=== PATIENT | female | born 1995 | race Caucasian/White ===

== ENCOUNTER → 2019-09-20 | Outpatient (REF) | payer OTHER | LOC: M SFHCCLAY 09:10 | PROVIDERS: ATTEND Nurse Practitioner Family | DX: J03.90 Acute tonsillitis, unspecified (principal) ==

== ENCOUNTER → 2020-07-17 | Outpatient (REF) | payer OTHER | LOC: M SFHCCLAY 15:41 | PROVIDERS: ATTEND Physician Assistant | DX: R30.0 Dysuria (principal) ==

== ENCOUNTER → 2020-10-24 | Outpatient (REF) | payer OTHER | LOC: M PLALAB 10:31 | PROVIDERS: ATTEND Obstetrics & Gynecology | DX: O99.211 Obesity complicating pregnancy, first trimester (principal) ==

== ENCOUNTER → 2020-10-25 | Outpatient (REF) | payer OTHER ==
[2020-10-25 12:37] LABS: HEMATOCRIT 37.2 % (36.0-47.0); HEMOGLOBIN 11.7 g/dl (12.0-15.5); MEAN CORPUSCULAR HEMOGLOBIN 27.3 pg (27.0-33.0); MEAN CORPUSCULAR HGB CONC 31.5 g/dl (32.0-36.5); MEAN CORPUSCULAR VOLUME 86.7 fl (80.0-96.0); PLATELET COUNT, AUTOMATED 325 10^3/uL (150-450); RED BLOOD COUNT 4.29 10^6/uL (4.00-5.40); WHITE BLOOD COUNT 10.7 10^3/uL (4.0-10.0)
[2020-10-25 13:57] LABS: HEPATITIS C VIRUS ABY INDEX < 0.0 INDEX (<0.8); HIV 1&2 SCREEN CENTAUR NEGATIVE (NEGATIVE)
== END ==
LOC: M PLALAB 09:46
PROVIDERS: ATTEND Advanced Practice Midwife
DX: O99.211 Obesity complicating pregnancy, first trimester (principal)

== ENCOUNTER → 2020-11-23 | Outpatient (REF) | payer OTHER | LOC: M SFHCWAGY 17:09 | PROVIDERS: ATTEND Advanced Practice Midwife | DX: Z34.02 Encounter for supervision of normal first pregnancy, second trimester (principal) ==

== ENCOUNTER → 2020-11-27 | Outpatient (CLI) | payer OTHER ==
--- NOTE | 2020-11-27 14:57 | REP ---
INDICATION: ANATOMY COMPARISON: None. TECHNIQUE: Transabdominal obstetrical ultrasound with color Doppler evaluation. FINDINGS: Examination demonstrates a single live intrauterine in cephalic presentation. motion is identified by technologist. Placenta is noted fundal and grade 0 without evidence for placenta previa or abruption. Amniotic fluid volume is normal. Cervix measures 3.7 cm in length and appears closed.. Gestational age by LMP eighteen weeks 3 days with LACI 04/27/2021. Gestational age by current measurements 18 weeks 1 day with LACI 04/29/2021. FHR equals 147 beats per minute. BPD: 4.3 cm at 18 weeks 6 days HC: 15.0 cm at 18 weeks 1 day AC: 12.3 cm at 18 weeks 0 days FL: 2.6 cm at 17 weeks 5 days HL: 2.6 cm at 18 weeks 2 days HC/AC: 1.22 Estimated weight 215 grams (19thpercentile). Anatomical assessment demonstrates normal structures including cranium, choroid plexus, cavum, cerebellum/posterior fossa, facial features, lungs, four-chamber heart/ventricular outflow tracts, diaphragm, stomach, cord insertion/three-vessel cord, kidneys/bladder, spine, and extremities. IMPRESSION: Single live intrauterine in cephalic presentation demonstrating appropriate estimated weight/growth. Anatomical assessment is complete and normal. <Electronically signed by Clay Quick > 11/27/20 [id number]
== END ==
LOC: M WHC 13:46
PROVIDERS: ATTEND Obstetrics & Gynecology
DX: Z34.82 Encounter for supervision of other normal pregnancy, second trimester (principal); Z36.89 Encounter for other specified antenatal screening; Z3A.18 18 weeks gestation of pregnancy

== ENCOUNTER → 2020-12-21 | Outpatient (REF) | payer OTHER | LOC: M SFHCWAGY 16:45 | PROVIDERS: ATTEND Advanced Practice Midwife | DX: Z34.02 Encounter for supervision of normal first pregnancy, second trimester (principal); Z3A.00 Weeks of gestation of pregnancy not specified ==

== ENCOUNTER → 2021-01-15 | Outpatient (REF) | payer OTHER ==
[2021-01-15 14:18] LABS: HEMOGLOBIN 10.5 g/dl (12.0-15.5); MEAN CORPUSCULAR HEMOGLOBIN 27.9 pg (27.0-33.0); MEAN CORPUSCULAR HGB CONC 30.9 g/dl (32.0-36.5); MEAN CORPUSCULAR VOLUME 90.2 fl (80.0-96.0); PLATELET COUNT, AUTOMATED 348 10^3/uL (150-450); RED BLOOD COUNT 3.77 10^6/uL (4.00-5.40); WHITE BLOOD COUNT 15.2 10^3/uL (4.0-10.0)
== END ==
LOC: M PLALAB 09:02
PROVIDERS: ATTEND Advanced Practice Midwife
DX: Z34.02 Encounter for supervision of normal first pregnancy, second trimester (principal); Z36.89 Encounter for other specified antenatal screening; Z3A.25 25 weeks gestation of pregnancy

== ENCOUNTER → 2021-03-26 | Outpatient (CLI) | payer OTHER ==
--- NOTE | 2021-03-26 09:52 | REP ---
INDICATION: UTERINE SIZE DATE DISCREPANCY,GROWTH COMPARISON: 11/27/2020 TECHNIQUE: Transabdominal obstetrical ultrasound with color Doppler evaluation. FINDINGS: Examination demonstrates a single live intrauterine in cephalic presentation. motion is identified by technologist. Placenta is noted and grade 2 without evidence for placenta previa or abruption. Amniotic fluid volume is normal. Cervix measures 3.4 cm in length and appears closed.. Selected gestational age: 35 weeks 3 days with LACI 04/27/2021. Gestational age by current measurements 35 weeks 5 days with LACI 04/25/2021. FHR equals 170 beats per minute. BPD: 8.8 cm at 35 weeks 5 days HC: 31.8 cm at 35 weeks 5 days AC: 32.7 cm at 36 weeks 4 days FL: 6.8 cm at 35 weeks 1 day HL: 6.2 cm at 35 weeks 5 days HC/AC: 0.97 Estimated weight 2830 grams (66thpercentile). HAYES: 31.5 cm (7.8-24.9) Umbilical artery SD ratio: 2.53 (1.66-3.56) IMPRESSION: 1. Single live advanced gestation in cephalic presentation demonstrating appropriate estimated weight and growth. 2. Polyhydramnios suspected. <Electronically signed by Clay Quick > 03/26/21 2206
== END ==
LOC: M WHC 08:19
PROVIDERS: ATTEND Advanced Practice Midwife
DX: O26.843 Uterine size-date discrepancy, third trimester (principal); Z3A.35 35 weeks gestation of pregnancy

== ENCOUNTER → 2021-04-17 | Outpatient (REF) | payer OTHER | LOC: M SFHCWAGY 12:39 | PROVIDERS: ATTEND Advanced Practice Midwife | DX: O40.3XX0 Polyhydramnios, third trimester, not applicable or unspecified (principal) ==

== ENCOUNTER 2021-04-20 09:08 | Inpatient (IN) | payer OTHER ==
[~2021-04-20] VITALS: Ht 154.9 cm; Wt 102.6 kg
[2021-04-20] VITALS (19 sets, daily range): BP systolic 114–191; BP diastolic 62–108
[2021-04-20] MEDS ORDERED: PRENTAB9 PO (09:59)
[2021-04-20] MEDS ORDERED: ACET-907 PO (09:59)
[2021-04-20] MEDS ORDERED: ZOLO25TA PO (09:59)
[2021-04-20] MEDS ORDERED: HOME MED LIST COMPLETE! XX SCH (10:00)
[2021-04-20] MEDS: miSOPROStol 50MCG 1/2 TABLET PO SCH ×4 (11:23→23:41)
[2021-04-20 11:26] LABS: HEMATOCRIT 31.4 % (36.0-47.0); HEMOGLOBIN 9.7 g/dl (12.0-15.5); MEAN CORPUSCULAR HEMOGLOBIN 24.7 pg (27.0-33.0); MEAN CORPUSCULAR HGB CONC 30.9 g/dl (32.0-36.5); MEAN CORPUSCULAR VOLUME 80.1 fl (80.0-96.0); PLATELET COUNT, AUTOMATED 372 10^3/uL (150-450); RED BLOOD COUNT 3.92 10^6/uL (4.00-5.40); WHITE BLOOD COUNT 12.8 10^3/uL (4.0-10.0)
--- NOTE | 2021-04-20 19:11 | HPEPDOC ---
Obstetrical History & Physical General Date of Admission Apr 20, 2021 at 09:08 History of Present Illness IOL for polyhydramnios Chief Complaint: Induction of labor Information Provided By: Patient Age: 25 : 2 Care Care: Good Care Dating Final EDC: Apr 19, 2021 Final EDC by: LMP EGA at Admission: 40 Past Medical History Past Obstetrical History : Past Obstetrical History: Primgravida [employer] History: Spontaneous , Abnormal Pap, History of STD Past Medical History Surgical History: [place] teeth Family History Significant Family History: Cancer Social History Marital Status: Psychosocial History: Anxiety, Depression * Smoker: non-smoker Alcohol: Denies Drugs: denies Allergies Coded Allergies: lavender (Lavandula angustifolia) (Verified Allergy, Intermediate, 04/20/21) HIVES WITH ANYTHING LAVENDER SCENTED Medications Scheduled No.137/Iron/Folic Acd ( Vitamin Tablet) 1 Each Tablet, 1 TAB PO DAILY Sertraline Hcl (Zoloft) 25 Mg Tablet, 25 MG PO DAILY Scheduled PRN Acetaminophen (Tylenol) 325 Mg Tablet, 1-2 TABS PO Q4HP PRN for MILD DISCOMFORT Physical Examination Physical Examination GENERAL: Alert and oriented times three. BREAST: . ABDOMEN: Gravid and non-tender to touch. FETUS: Is vertex (VTX) by sterile vaginal examination (SVE), fetus is vertex (VTX) by Jona. HEART RATE: Regular rate and rhythm. LUNGS: Clear to auscultation (CTA). EXTREMITIES: No edema. No clonus. Deep tendon reflexes (DTRs) + . Vital Signs/I&O Vital Signs Date Time Temp Pulse Resp B/P (MAP) Pulse Ox O2 Delivery O2 Flow Rate FiO2 04/20/21 16:16 75 20 140/75 (96) 04/20/21 14:43 97.4 98 Room Air Laboratory Data 24H LABS Laboratory Tests 2 04/20/21 09:40: Serology Scanned Report Hepatitis B Testing 04/20/21 10:59: Nucleated Red Blood Cells % (auto) 0.0 CBC/BMP Laboratory Tests 04/20/21 10:59 Pertinent Laboratoy Data Blood Type: A+ RBC Antibody Screen: Negative HIV: Negative Hepatitis B: Negative Hepatitis C: Negative Rapid Plasma Reagin: Nonreactive Rubella: Immune Chlamydia/Gonorrhea: Negative Group B Streptococcus: Negative Glucose Tolerance Test: 102 Anatomy Ultrasound Placenta Location: Posterior Normal Anatomy: No Vaginal Examination Dilation: None Cervical Position: Posterior Presentation: Cephalic presentation Assessment Variability: Moderate Accelerations: Positive Tocometer Contractions: Yes Frequency: irregular Assessment/Plan Assessment 25yo at 40w1d IOL for polyhydramnios Reassuring status Plan Admit and orient. Heat Treat Operator and consent. Diet: regular. Group B Streptococcus (GBS) negative. Labs and intravenous (IV) per unit protocol. Counseled on Pitocin and induction of labor (IOL). Anticipate normal spontaneous delivery (). C-S as appropriate. PRERNA NELSON MD. Apr 20, 2021 19:11
[2021-04-21] VITALS (24 sets, daily range): BP systolic 106–148; BP diastolic 60–89
[2021-04-21] MEDS: miSOPROStol 50MCG 1/2 TABLET PO SCH (03:47)
[2021-04-21] MEDS ORDERED: OXYTOCIN DRIP 30 UNITS in IV 1 EA IV SCH ×2 (07:40→21:35)
[2021-04-21] MEDS: LR 1,000 ML IV SCH ×3 (08:59→21:35)
[2021-04-21] MEDS ORDERED: SERTRALINE HCL 25 MG TABLET PO SCH (09:00)
[2021-04-21] MEDS ORDERED: ONDANSETRON 4MG/2ML VIAL IV PRN ×4 (09:50→22:35)
--- NOTE | 2021-04-21 17:23 | IPNPDOC ---
Obstetrical Progress Note Date of Service Apr 21, 2021 Subjective 25yo G1 undergoing IOL. Has had 5 doses of cytotec and now on pitocin for several hrs Objective Vital Signs Date Time Temp Pulse Resp B/P (MAP) Pulse Ox O2 Delivery O2 Flow Rate FiO2 04/21/21 15:43 73 18 127/70 (89) 04/21/21 13:44 98.3 04/20/21 19:34 99 Room Air Assessment Variability: Moderate Heart Rate Tracing: Category I Tocometer Contractions: Yes Frequency: regular Sterile Vaginal Examination Dilation: 1cm Effacement (%): 50% Station: -3 Cervical Consistency: Medium Cervical Position: Posterior Postion/Presentation: Cephalic presentation (cook cath placed 70/30ml) Assessment and Plan Age: 25 : 1 Status: Reassuring Anticipate: Vaginal Delivery PRERNA NELSON MD. Apr 21, 2021 17:23
[2021-04-21] MEDS ORDERED: BICITRA 30ML SOLN UDC As Ordered ONE (20:54)
[2021-04-21] MEDS ORDERED: BICITRA 30ML SOLN UDC PO ONE (20:55)
[2021-04-21] MEDS ORDERED: AZITHROMYCIN INJ 500 MG, VIAL MATE ADAPTER 1 EACH in NS 250 ML IV ONE (20:55)
[2021-04-21] MEDS ORDERED: ceFAZolin SOD 2 GM in IV 1 EA IV ONE (20:55)
--- NOTE | 2021-04-21 20:55 | IPNPDOC ---
Obstetrical Progress Note Date of Service Apr 21, 2021 Subjective Pitocin off 2nd tachycardia. Cervix unchanged. Objective Vital Signs Date Time Temp Pulse Resp B/P (MAP) Pulse Ox O2 Delivery O2 Flow Rate FiO2 04/21/21 19:44 98.7 90 18 123/65 (84) 98 Room Air Assessment Heart Patterns: Tachycardia Heart Rate Tracing: Category II Sterile Vaginal Examination Dilation: 1cm Effacement (%): 30% Station: -3 Postion/Presentation: Cephalic presentation Assessment and Plan Age: 25 Anticipate: Section Additional Comments Plan for 1LTCS for inability augment labor/failed induction. Patient's been thoroughly counseled in terms of options proceeding as was risks with proceeding with induction labor versus proceeding with primary section. All questions were answered and patient desires to proceed with plan for primary section PRERNA NELSON MD. Apr 21, 2021 20:55
[2021-04-21] MEDS ORDERED: OXYTOCIN INJ 10 UNITS/ML VIAL (J2590) As Ordered ONE ×2 (20:56→21:51)
[2021-04-21] MEDS ORDERED: MORPHINE PRES-FREE INJ 10 MG/10 ML VIAL (J2274) As Ordered ONE (20:56)
[2021-04-21] MEDS ORDERED: NALBUPHINE HCL 10 MG/ML AMP (J2300) IV PRN (21:24)
[2021-04-21] MEDS ORDERED: METOCLOPRAMIDE INJ 10MG/2ML VIAL (J2765 PER 1) IV PRN (21:24)
[2021-04-21] MEDS ORDERED: NALOXONE INJ 0.4MG/1ML VIAL (J2310 PER 1MG) IV PRN ×2 (21:24)
[2021-04-21] MEDS ORDERED: diphenhydrAMINE 50MG/ML VIAL (J1200) IV PRN (21:24)
[2021-04-21] MEDS ORDERED: PHENYLephrine 500MCG 5ML (100MCG/ML) SYRINGE As Ordered ONE (21:31)
[2021-04-21] MEDS ORDERED: MEASLES,MUMPS,RUBELLA VACCINE INJ (MMR-II) (90707) SC SCH (21:35)
[2021-04-21] MEDS ORDERED: RHOGAM 300 MCG (1500 IU) INJ (J2790) IM SCH (21:35)
[2021-04-21] MEDS ORDERED: MOM 30ML SUSPENSION UDC PO PRN (21:35)
[2021-04-21] MEDS ORDERED: PERCOCET 5MG/325MG TAB PO PRN ×2 (21:35)
[2021-04-21] MEDS ORDERED: SIMETHICONE 80MG CHEW TAB PO PRN (21:35)
[2021-04-21] MEDS ORDERED: ONDANSETRON 4MG/2ML VIAL As Ordered ONE (21:39)
[2021-04-21] MEDS ORDERED: dexameTHASONE 4 MG/ML 1ML VIAL (J1100 PER 1MG) As Ordered ONE (21:53)
[2021-04-21] MEDS ORDERED: METOCLOPRAMIDE INJ 10MG/2ML VIAL (J2765 PER 1) As Ordered ONE (21:53)
[2021-04-21 22:08] LABS: CORD GAS ABE V -3.7; CORD GAS HCO3 A 24.3 MEQ/L; CORD GAS HCO3 V 22.1 MEQ/L; CORD GAS O2 SAT V 47.6 %; CORD GAS PCO2 A 65.2 mmHg; CORD GAS PCO2 V 42.8 mmHg; CORD GAS PH A 7.19 UNITS; CORD GAS PH V 7.331 UNITS; CORD GAS PO2 A 14.3 mmHg; CORD GAS PO2 V 20.8 mmHg; CORD GAS SBC A 18.7 MEQ/L; CORD GAS SBC V 20.3 MEQ/L; CORD GAS TCO2 A 26.3 MEQ/L; CORD GAS TCO2 V 23.4 MEQ/L
[2021-04-21] MEDS ORDERED: KETOROLAC 60MG 2ML VIAL As Ordered ONE (22:21)
--- NOTE | 2021-04-21 22:22 | ROOPDOC ---
[facility] Report Of Operation Report of Operation DATE OF PROCEDURE: 04/21/21 SURGEON: Grace Sewell M.D. [facility] WORKER: Bro Fajardo DO ( essential for tissue retractions, exposure and delivery of ) PROCEDURE: Primary section PREOPERATIVE DIAGNOSIS: 1. Inability to augment labor 2. Failed induction 3. Polyhydramnios POSTOPERATIVE DIAGNOSIS: 1. Inability to augment labor 2. Failed induction 3. Polyhydramnios ANESTHESIA: Spinal ESTIMATED BLOOD LOSS: 700 mL URINE OUTPUT: 150 mL INTRAVENOUS FLUIDS: 1280 mL of lactated Ringer's solution PREOPERATIVE ANTIBIOTICS:. 2 g of Ancefand 500 azithromycin OPERATIVE FINDINGS: Liveborn male , Apgars 7 and 9. Weight 3330 g 7 lbs. 5 oz. SPECIMENS: None DESCRIPTION OF PROCEDURE: After informed consent was obtained and written consent was reviewed. The patient was brought to the operating room where spinal anesthesia was placed. She was then placed in the supine position with a left lateral tilt. Yañez catheter was placed and to gravity. Patient was then prepped and draped in the normal sterile fashion. A timeout operating room was performed identifying the patient, procedure be performed as well as drug allergies. Anesthesia was tested and deemed to be adequate. Pfannenstiel skin incision was made and this was carried down to the underlying rectus fascia. The fascia was then scored and this incision was extended bilaterally. The fascia was then dissected off the underlying rectus muscle superiorly and inferiorly. The rectus muscles were then in the midline. The peritoneum is then entered. Vesicouterine peritoneum was then tented and excised and a bladder flap was created. Mobius retractor was then placed. Next, a curvilinear incision was then made in the lower uterine segment. Amniotomy was performed, productive, meconium stained amniotic fluid. The head was brought to the level of the incision atraumatically with the aid of a vacuum and delivered along the shoulders and corpus. The cord was clamped x2. The infant was brought over to the warmer with a good cry. Placenta was drained and delivered grossly intact. The uterus was cleared of all clots and debris and the uterine incision was then closed using 0 Vicryl in a running locking fashion followed by a second layer of 0 Vicryl in a running nonlocking fashion for imbrication. The abdomen suctioned. Surgical sites reinspected and noted be hemostatic. The retractor was then removed. The anterior peritoneum was then reapproximated with 3-0 Vicryl. The rectus muscles were reapproximated 3-0 Vicryl. The fascia was then closed using 0 Vicryl in a running nonlocking fashion. The subcutaneous tissues was then irrigated and suctioned. Subcutaneous tissue was reapproximated using 3-0 Vicryl. Several subdermal stitch is placed using 3-0 Vicryl and the skin was closed with 4-0 Monocryl and subcuticular fashion. This incision was then cleaned and dried and was dressed. The patient was then taken to recovery in stable condition. All counts were correct. My manager surgical Dr. Fajardo played in an essential role during the operation. He assisted with tissue identification retraction, delivery of the , as well as wound closure. GRACE SEWELL MD. Apr 21, 2021 22:22
[2021-04-21] MEDS ORDERED: fentaNYL 100 MCG/2 ML INJECTION (J3010) IV PRN (22:35)
[2021-04-21] MEDS ORDERED: oxyCODONE 5MG TAB PO PRN (22:35)
[2021-04-21] MEDS ORDERED: OXYTOCIN 30 UNITS IN 0.9% NaCl 500ML IV BAG (J2590) As Ordered ONE (22:36)
[2021-04-22] VITALS (9 sets, daily range): BP systolic 101–139; BP diastolic 55–82
[2021-04-22] MEDS: DOCUSATE SODIUM 100MG CAPSULE PO SCH ×3 (00:41→20:36)
[2021-04-22] MEDS: LR 1,000 ML IV SCH ×2 (02:50→15:33)
[2021-04-22] MEDS: KETOROLAC 30 MG/ML 1ML VIAL IV SCH ×3 (04:36→17:28)
[2021-04-22] MEDS ORDERED: LR 1,000 ML IV ONE ×2 (05:45→10:10)
[2021-04-22 08:35] LABS: HEMOGLOBIN 9.3 g/dl (12.0-15.5); MEAN CORPUSCULAR VOLUME 80.6 fl (80.0-96.0); PLATELET COUNT, AUTOMATED 343 10^3/uL (150-450); RED BLOOD COUNT 3.72 10^6/uL (4.00-5.40); WHITE BLOOD COUNT 21.1 10^3/uL (4.0-10.0)
[2021-04-22] MEDS: PRENATAL VITAMINS CHEWABLE TABLET PO SCH (10:08)
[2021-04-22] MEDS ORDERED: LACTATED RINGER'S 1000 ML IV ONE (15:25)
[2021-04-22] MEDS: SERTRALINE HCL 25 MG TABLET PO SCH (15:33)
[2021-04-23] MEDS: IBUPROFEN 800 MG TAB PO SCH ×2 (00:03→07:56)
[2021-04-23 01:54] VITALS: BP 132/66
[2021-04-23 05:47] VITALS: BP 174/79
[2021-04-23] MEDS: PRENATAL VITAMINS CHEWABLE TABLET PO SCH (07:57)
[2021-04-23] MEDS: DOCUSATE SODIUM 100MG CAPSULE PO SCH (07:57)
[2021-04-23 08:30] VITALS: BP 139/80
[2021-04-23] MEDS: SERTRALINE HCL 25 MG TABLET PO SCH (09:59)
[2021-04-23 10:00] VITALS: BP 133/84
[2021-04-23] MEDS ORDERED: PERCOCET PO (10:10)
[2021-04-23] MEDS ORDERED: IBUP80TA PO (10:10)
--- NOTE | 2021-04-23 10:12 | DS.PDOC ---
Discharge Summary General Date of Admission Apr 20, 2021 at 09:08 Date of Discharge April 23, 2021 Attending Physician: PRERAN NELSON MD. Discharge Summary PROCEDURES PERFORMED DURING STAY: 1 section 2 spinal anesthesia. ADMITTING DIAGNOSES: 1. Polyhydramnios. DISCHARGE DIAGNOSES: 1. Polyhydramnios 2. Failed induction/inability to augment labor. COMPLICATIONS/CHIEF COMPLAINT: Induction. HISTORY OF PRESENT ILLNESS: Mrs. Ahuja presented for induction of labor at 40 weeks for polyhydramnios. During her induction and there was a persistent category 2 heart rate tracing. Patient had made no further advancement and dilation and was counseled for a primary section for inability to augment labor. She underwent a section, productive of live born male a Apgars were 7 and 9 weight was 3330 g or 7 lbs. 5 oz. Estimated blood loss 700ml. Patient did well postoperatively by postoperative day #2 had met all discharge criteria is as discharged home in stable condition DISCHARGE MEDICATIONS: Please see below. ALLERGIES: Please see below. PHYSICAL EXAMINATION ON DISCHARGE: VITAL SIGNS: Please see below. GENERAL: No distress HEENT: WNL ABDOMINAL EXAMINATION: Fundus firm. Dressing intact EXTREMITIES: Equal strength and motion SKIN: Intact NEUROLOGICAL EXAMINATION: Grossly intact PSYCHIATRIC EXAMINATION: Appropriate LABORATORY DATA: Please see below. PROGNOSIS: Good ACTIVITY: As tolerated. Pelvic rest. DIET: As tolerated DISCHARGE PLAN: Discharge today. Remove dressing day 5 DISPOSITION: Home DISCHARGE INSTRUCTIONS: 1. Pelvic rest. Continue vitamins. Medications as ordered. Call with fever, nausea, vomiting, chills, foul lochia, wound exudate or evidence infection. DISCHARGE CONDITION: Stable Vital Signs/I&Os Vital Signs Date Time Temp Pulse Resp B/P (MAP) Pulse Ox O2 Delivery O2 Flow Rate FiO2 04/23/21 10:00 98.1 93 16 133/84 (100) 99 Room Air I&O- Last 24 Hours up to 6 AM 04/23/21 06:00 Intake Total 7168.5 ml Output Total 1505 ml Balance 5663.5 ml Discharge Medications Scheduled Ibuprofen (Ibuprofen) 800 Mg Tablet, 800 MG PO Q8H No.137/Iron/Folic Acd ( Vitamin Tablet) 1 Each Tablet, 1 TAB PO DAILY, (Reported) Sertraline Hcl (Zoloft) 25 Mg Tablet, 25 MG PO DAILY, (Reported) Scheduled PRN Acetaminophen (Tylenol) 325 Mg Tablet, 1-2 TABS PO Q4HP PRN for MILD DISCOMFORT, (Reported) Oxycodone/Acetaminophen (Oxycodone-Acetaminophen 5-325) 1 Each Tablet, 1 TAB PO Q4H PRN for MODERATE PAIN (PS 5-7) Allergies Coded Allergies: lavender (Lavandula angustifolia) (Verified Allergy, Intermediate, 04/20/21) HIVES WITH ANYTHING LAVENDER SCENTED PRERNA NELSON MD. Apr 23, 2021 10:12
== END 2021-04-23 13:15 | disposition home or self-care (01) | DRG 540 ==
LOC: M LDI 09:08 → M OBS 04-22 00:18
PROVIDERS: ADMIT Obstetrics & Gynecology; ATTEND Obstetrics & Gynecology
PROC: 3E033VJ Introduction of Other Hormone into Peripheral Vein, Percutaneous Approach (ICD-10-PCS; 2021-04-20)
PROC: 3E0DXGC Introduction of Other Therapeutic Substance into Mouth and Pharynx, External Approach (ICD-10-PCS; 2021-04-20)
PROC: 10D00Z1 Extraction of Products of Conception, Low, Open Approach (ICD-10-PCS; principal; 2021-04-21 21:30)
DX: O40.3XX0 Polyhydramnios, third trimester, not applicable or unspecified (principal); Z37.0 Single live birth; Z3A.40 40 weeks gestation of pregnancy; O48.0 Post-term pregnancy; O61.0 Failed medical induction of labor

== ENCOUNTER → 2023-02-24 | Outpatient (CLI) | payer OTHER ==
[~2023-02-24] MED LIST: ACET-907 PO; IBUP80TA PO; PERCOCET PO; PRENTAB9 PO; ZOLO25TA PO
[2023-02-24 15:51] LABS: HEMATOCRIT 32.8 % (36.0-47.0); MEAN CORPUSCULAR HGB CONC 30.5 g/dl (32.0-36.5); MEAN CORPUSCULAR VOLUME 78.7 fl (80.0-96.0); PLATELET COUNT, AUTOMATED 376 10^3/uL (150-450); RED BLOOD COUNT 4.17 10^6/uL (4.00-5.40); WHITE BLOOD COUNT 12.5 10^3/uL (4.0-10.0)
[2023-02-24 16:47] LABS: HIV 1&2 SCREEN NEGATIVE (NEGATIVE)
[2023-02-24 16:54] LABS: HEPATITIS C VIRUS ABY INDEX 0.09 INDEX (<0.8)
[2023-02-24 17:13] LABS: GC DNA AMPLIFICATION NEGATIVE (NEGATIVE)
== END ==
LOC: M PLALAB 14:30
PROVIDERS: ATTEND Advanced Practice Midwife
DX: Z34.81 Encounter for supervision of other normal pregnancy, first trimester (principal)

== ENCOUNTER → 2023-04-27 | Outpatient (REF) | payer OTHER | LOC: M PLALAB 10:50 | PROVIDERS: ATTEND Obstetrics & Gynecology | DX: Z34.02 Encounter for supervision of normal first pregnancy, second trimester (principal) ==

== ENCOUNTER → 2023-04-30 | Outpatient (CLI) | payer OTHER | LOC: M WHC 14:37 | PROVIDERS: ATTEND Advanced Practice Midwife | DX: Z36.89 Encounter for other specified antenatal screening (principal); Z3A.22 22 weeks gestation of pregnancy ==

== ENCOUNTER → 2023-07-23 | Outpatient (CLI) | payer OTHER | LOC: M WHC 15:01 | PROVIDERS: ATTEND Obstetrics & Gynecology | DX: O34.219 Maternal care for unspecified type scar from previous cesarean delivery (principal); Z3A.33 33 weeks gestation of pregnancy ==

== ENCOUNTER → 2023-08-04 | Outpatient (REF) | payer OTHER ==
[~2023-08-04] MED LIST changes: +COLA100C5 PO
== END ==
LOC: M PLALAB 15:06
PROVIDERS: ATTEND Advanced Practice Midwife
DX: Z36.85 Encounter for antenatal screening for Streptococcus B (principal)

== ENCOUNTER → 2023-08-21 | Outpatient (CLI) | payer OTHER ==
[~2023-08-21] MED LIST changes: -COLA100C5 PO
== END ==
LOC: M WHC 14:17
PROVIDERS: ATTEND Advanced Practice Midwife
DX: O34.211 Maternal care for low transverse scar from previous cesarean delivery (principal); O40.3XX0 Polyhydramnios, third trimester, not applicable or unspecified; Z3A.38 38 weeks gestation of pregnancy

== ENCOUNTER 2023-08-31 05:41 | Inpatient (IN) | payer OTHER ==
[~2023-08-31] VITALS: Ht 154.9 cm; Wt 100.0 kg
[2023-08-31] VITALS (18 sets, daily range): BP systolic 122–177; BP diastolic 66–112; TEMP 97.3; O2SAT 94–97
[2023-08-31] MEDS ORDERED: LACTATED RINGER'S 1000 ML IV STA (05:48)
[2023-08-31] MEDS ORDERED: BICITRA 30ML SOLN UDC PO ONE (05:50)
[2023-08-31] MEDS ORDERED: LR 1,000 ML IV SCH ×2 (05:50→11:20)
[2023-08-31] MEDS ORDERED: ceFAZolin SOD 2 GM in IV 1 EA IV ONE (05:50)
[2023-08-31 06:35] LABS: HEMATOCRIT 27.6 % (36.0-47.0); HEMOGLOBIN 8.3 g/dl (12.0-15.5); MEAN CORPUSCULAR HEMOGLOBIN 21.7 pg (27.0-33.0); MEAN CORPUSCULAR HGB CONC 30.1 g/dl (32.0-36.5); MEAN CORPUSCULAR VOLUME 72.3 fl (80.0-96.0); PLATELET COUNT, AUTOMATED 279 10^3/uL (150-450); RED BLOOD COUNT 3.82 10^6/uL (4.00-5.40); WHITE BLOOD COUNT 8.2 10^3/uL (4.0-10.0)
[2023-08-31] MEDS ORDERED: MORPHINE PRES-FREE INJ 10 MG/10 ML VIAL As Ordered ONE (08:50)
[2023-08-31] MEDS ORDERED: ONDANSETRON 4MG 2ML VIAL As Ordered ONE (08:50)
[2023-08-31] MEDS ORDERED: ACETAMINOPHEN 1000MG 100ML IV BAG As Ordered ONE (08:50)
[2023-08-31] MEDS ORDERED: KETOROLAC 60MG 2ML VIAL As Ordered ONE (08:50)
[2023-08-31] MEDS ORDERED: SIMETHICONE 80MG CHEW TAB PO PRN (08:55)
[2023-08-31] MEDS ORDERED: MOM 30ML SUSPENSION UDC PO PRN (08:55)
[2023-08-31] MEDS ORDERED: PERCOCET 5MG/325MG TAB PO PRN (08:55)
[2023-08-31] MEDS ORDERED: OXYTOCIN DRIP 30 UNITS in IV 1 EA IV SCH (08:55)
[2023-08-31] MEDS ORDERED: RHOGAM 300MCG (1500IU) INJ IM SCH (08:55)
[2023-08-31] MEDS ORDERED: OXYTOCIN 30UNITS IN 0.9% NaCl 500ML IV BAG As Ordered ONE ×2 (08:58→09:49)
[2023-08-31] MEDS: FERROUS SULFATE 325MG TAB PO SCH (09:00)
[2023-08-31] MEDS: PRENATAL VITAMINS CHEWABLE TABLET PO SCH (09:00)
[2023-08-31] MEDS: DOCUSATE SODIUM 100MG CAPSULE PO SCH ×2 (09:00→20:02)
[2023-08-31] MEDS ORDERED: PHENYLephrine 500MCG 5ML (100MCG/ML) SYRINGE As Ordered ONE (09:02)
[2023-08-31] MEDS ORDERED: METHYLERGONOVINE MALEATE 0.2MG/ML 1ML VIAL IM ONE (09:10)
[2023-08-31] MEDS ORDERED: METOCLOPRAMIDE INJ 10MG/2ML VIAL As Ordered ONE (09:31)
[2023-08-31] MEDS ORDERED: MEPERIDINE 25 MG/ML 1ML VIAL IV PRN (11:20)
[2023-08-31] MEDS ORDERED: HYDROMORPHONE HCL 0.5 MG/ 0.5 ML SYRINGE IV PRN (11:20)
[2023-08-31] MEDS ORDERED: ONDANSETRON 4MG 2ML VIAL IV PRN (11:20)
[2023-08-31] MEDS ORDERED: METOCLOPRAMIDE INJ 10MG/2ML VIAL IV PRN (11:20)
[2023-08-31] MEDS: SLF 3 ML SYR IV SCH ×2 (11:20→20:00)
[2023-08-31] MEDS ORDERED: oxyCODONE 5MG TAB PO PRN (11:20)
[2023-08-31] MEDS ORDERED: **NOTE PATIENT COMMENT** MISC XX SCH (11:20)
[2023-08-31] MEDS ORDERED: fentaNYL 100 MCG/2 ML INJECTION IV PRN (11:20)
[2023-08-31] MEDS ORDERED: NALOXONE INJ 0.4MG/1ML VIAL IV PRN ×2 (11:20)
[2023-08-31] MEDS ORDERED: diphenhydrAMINE 50MG/ML VIAL IV PRN (11:20)
[2023-08-31] MEDS: ONDANSETRON 4MG 2ML VIAL IV PRN ×2 (11:24→17:14)
[2023-08-31] MEDS: LR 1,000 ML IV SCH ×2 (12:56→19:06)
[2023-08-31] MEDS ORDERED: LABETALOL 100MG/20ML VIAL IV STA (13:16)
[2023-08-31] MEDS: KETOROLAC 30 MG/ML 1ML VIAL IV SCH ×2 (15:20→20:00)
[2023-08-31] MEDS ORDERED: LABETALOL 200 MG TAB PO ONE (17:35)
[2023-08-31 18:15] LABS: HEMATOCRIT 27.6 % (36.0-47.0); HEMOGLOBIN 8.4 g/dl (12.0-15.5); MEAN CORPUSCULAR HEMOGLOBIN 22.4 pg (27.0-33.0); MEAN CORPUSCULAR HGB CONC 30.4 g/dl (32.0-36.5); MEAN CORPUSCULAR VOLUME 73.6 fl (80.0-96.0); PLATELET COUNT, AUTOMATED 251 10^3/uL (150-450); RED BLOOD COUNT 3.75 10^6/uL (4.00-5.40); WHITE BLOOD COUNT 16.2 10^3/uL (4.0-10.0)
[2023-08-31 18:41] LABS: URIC ACID 5.3 MG/DL (3.1-7.8)
[2023-08-31 18:42] LABS: CREATININE,RANDOM URINE 420.2 MG/DL; TOTAL PROTEIN,RANDOM URINE 163.5 MG/DL (0.0-14.0)
[2023-08-31 18:43] LABS: LDH LACTATE DEHYDROGENASE 231 U/L (120-246)
[2023-08-31 18:44] LABS: ALT/SGPT 13 U/L (7.0-40); AST/SGOT 20 U/L (<34); BILIRUBIN,TOTAL 0.3 MG/DL (0.3-1.2); CREATININE FOR GFR 0.61 MG/DL (0.55-1.30); GLOMERULAR FILTRATION RATE > 60.0 (>60)
[2023-09-01] MEDS ORDERED: LR 500 ML IV ONE (00:50)
[2023-09-01] MEDS: LR 1,000 ML IV SCH ×2 (01:25→05:23)
[2023-09-01 02:00] VITALS: BP 145/73; O2SAT 95
[2023-09-01] MEDS: KETOROLAC 30 MG/ML 1ML VIAL IV SCH (02:58)
[2023-09-01] MEDS: SLF 3 ML SYR IV SCH (04:20)
[2023-09-01 06:00] VITALS: BP 124/74; O2SAT 97
[2023-09-01 06:32] LABS: HEMATOCRIT 24.5 % (36.0-47.0); HEMOGLOBIN 7.3 g/dl (12.0-15.5); MEAN CORPUSCULAR HEMOGLOBIN 22.2 pg (27.0-33.0); MEAN CORPUSCULAR HGB CONC 29.8 g/dl (32.0-36.5); MEAN CORPUSCULAR VOLUME 74.5 fl (80.0-96.0); PLATELET COUNT, AUTOMATED 259 10^3/uL (150-450); RED BLOOD COUNT 3.29 10^6/uL (4.00-5.40)
[2023-09-01] MEDS: PRENATAL VITAMINS CHEWABLE TABLET PO SCH (07:57)
[2023-09-01] MEDS: DOCUSATE SODIUM 100MG CAPSULE PO SCH ×2 (07:57→20:30)
[2023-09-01] MEDS: FERROUS SULFATE 325MG TAB PO SCH (07:57)
[2023-09-01 10:00] VITALS: BP 127/75; O2SAT 98
[2023-09-01] MEDS: IBUPROFEN 800 MG TAB PO SCH ×2 (11:39→17:59)
[2023-09-01 14:00] VITALS: BP 131/69; O2SAT 96
[2023-09-01] MEDS: PERCOCET 5MG/325MG TAB PO PRN (17:59)
[2023-09-01 18:00] VITALS: BP 133/72; O2SAT 98
[2023-09-01 22:00] VITALS: BP 129/74; O2SAT 97
[2023-09-02 02:00] VITALS: BP 138/82; O2SAT 97
[2023-09-02] MEDS: IBUPROFEN 800 MG TAB PO SCH ×2 (02:35→11:28)
[2023-09-02 06:00] VITALS: BP 135/81
[2023-09-02] MEDS ORDERED: IBUP80TA PO (06:25)
[2023-09-02] MEDS ORDERED: PERCOCET PO (06:25)
[2023-09-02] MEDS ORDERED: COLA100C5 PO (06:25)
[2023-09-02] MEDS: PERCOCET 5MG/325MG TAB PO PRN (08:04)
[2023-09-02] MEDS: FERROUS SULFATE 325MG TAB PO SCH (08:04)
[2023-09-02] MEDS: DOCUSATE SODIUM 100MG CAPSULE PO SCH (08:04)
[2023-09-02] MEDS: PRENATAL VITAMINS CHEWABLE TABLET PO SCH (08:04)
[2023-09-02] MEDS ORDERED: MEASLES,MUMPS,RUBELLA VACCINE INJ (MMR-II) SC.IMMUN ONE (09:00)
== END 2023-09-02 12:40 | disposition home or self-care (01) | DRG 540 ==
LOC: M LDI 05:41 → M OBS 11:55
PROVIDERS: ADMIT Obstetrics & Gynecology; ATTEND Obstetrics & Gynecology
PROC: 0UB70ZZ Excision of Bilateral Fallopian Tubes, Open Approach (ICD-10-PCS; 2023-08-31)
PROC: 10D00Z1 Extraction of Products of Conception, Low, Open Approach (ICD-10-PCS; principal; 2023-08-31 07:30)
DX: O34.211 Maternal care for low transverse scar from previous cesarean delivery (principal); O40.3XX0 Polyhydramnios, third trimester, not applicable or unspecified; Z37.0 Single live birth; Z3A.39 39 weeks gestation of pregnancy; Z30.2 Encounter for sterilization

== ENCOUNTER 2024-03-18 10:53 | Day surgery (SDC) | payer OTHER ==
[~2024-03-18] VITALS: Ht 154.9 cm; Wt 94.5 kg
[~2024-03-18 10:53] MED LIST changes: +COLA100C5 PO
[2024-03-18] MEDS ORDERED: NAPR-849 PO (12:11)
[2024-03-18] MEDS: OXYMETAZOLINE 0.05% NASAL SPRAY (AFRIN) As Ordered ONE (12:19)
[2024-03-18] MEDS: SCOPOLAMINE 1MG TRANSDERMAL PATCH TOP ONE (12:21)
[2024-03-18] MEDS: AMPICILLIN SOD/SULBACTAM SOD 3 GM in D5W MINI-BAG PLUS 100 ML IV ONE (12:22)
[2024-03-18] MEDS: LR 1,000 ML IV SCH (12:22)
[2024-03-18] MEDS ORDERED: ACETAMINOPHEN 1000MG 100ML IV BAG As Ordered ONE (12:45)
[2024-03-18] MEDS ORDERED: PHENYLephrine 500MCG 5ML (100MCG/ML) SYRINGE As Ordered ONE (13:00)
[2024-03-18] MEDS ORDERED: fentaNYL 100 MCG/2 ML INJECTION As Ordered ONE (13:02)
[2024-03-18] MEDS ORDERED: MIDAZOLAM INJ 2MG/2ML VIAL As Ordered ONE (13:02)
[2024-03-18] MEDS ORDERED: KETOROLAC 60MG 2ML VIAL As Ordered ONE (13:04)
[2024-03-18] MEDS ORDERED: propofoL 200 MG/20 ML VIAL As Ordered ONE (13:04)
[2024-03-18] MEDS ORDERED: SUGAMMADEX SODIUM 500 MG/5 ML VIAL (BRIDION) As Ordered ONE (13:04)
[2024-03-18] MEDS ORDERED: ROCURONIUM BROMIDE 50MG/5ML VIAL As Ordered ONE (13:04)
[2024-03-18] MEDS ORDERED: ONDANSETRON 4MG 2ML VIAL As Ordered ONE (13:04)
[2024-03-18] MEDS ORDERED: LABETALOL 100MG/20ML VIAL As Ordered ONE (13:10)
[2024-03-18] MEDS: LIDOCAINE 2% W/ EPINEPHRINE 1.7 ML DENTAL INJ As Ordered ONE (13:44)
[2024-03-18] MEDS ORDERED: fentaNYL 100 MCG/2 ML INJECTION IV PRN (14:15)
[2024-03-18] MEDS ORDERED: LR 1,000 ML IV SCH (14:15)
[2024-03-18] MEDS ORDERED: ONDANSETRON 4MG 2ML VIAL IV PRN (14:15)
[2024-03-18] MEDS ORDERED: oxyCODONE 5MG TAB PO PRN (14:45)
[2024-03-18] MEDS: HYDROMORPHONE HCL 0.5 MG/ 0.5 ML SYRINGE IV PRN (14:58)
[2024-03-18] MEDS: ONDANSETRON 4MG 2ML VIAL IV PRN (16:24)
[2024-03-18 16:52] VITALS: BP 238/72; TEMP 97.2; O2SAT 96
== END 2024-03-18 17:09 | disposition home or self-care (01) ==
LOC: M SDC 10:53
PROVIDERS: ATTEND Dentist
DX: K02.9 Dental caries, unspecified (principal); F41.9 Anxiety disorder, unspecified; F32.A Depression, unspecified; F12.10 Cannabis abuse, uncomplicated
CPT/HCPCS: 81025; 88300; C9290; D7140; D7210; D9223; J0131; J0295; J1100; J1170; J1885; J1920; J2250; J2371; J2405; J3010